=== PATIENT | male | born 1970 ===

== ENCOUNTER 2021-02-21 06:59 | Day surgery (SDC) | payer OTHER ==
[~2021-02-21] VITALS: Ht 177.8 cm; Wt 104.1 kg
[2021-02-21] MEDS ORDERED: ZESTRIL 20MG TA20 MG PO (07:09)
[2021-02-21 07:27] VITALS: BP 120/78; PULSE 77; TEMP 97.8
[2021-02-21 09:15] VITALS: BP 112/78; PULSE 70; TEMP 97.8
--- NOTE | 2021-02-21 09:15 | NUR ---
Pt returned via cart to [facility]. Ambulated to recliner, given warm blanket. present in room. VSS-see flowsheet. Given toast, pudding and juice per request. Denies needs or complaints.
[2021-02-21 09:30] VITALS: BP 136/85; PULSE 73
[2021-02-21 09:45] VITALS: BP 129/87; PULSE 56
--- NOTE | 2021-02-21 10:49 | NUR ---
Pt tolerated oral intake. Dr Landon in to review procedure reports. Discharge teaching completed with pt and , verbalized understanding. Pt taken via wheelchair to private vehicle for to drive pt.
== END 2021-02-21 10:49 | disposition home or self-care (01) ==
LOC: SDCO 06:59
DX: D12.5 Benign neoplasm of sigmoid colon (principal); K21.00 Gastro-esophageal reflux disease with esophagitis, without bleeding; K21.9 Gastro-esophageal reflux disease without esophagitis; K57.30 Diverticulosis of large intestine without perforation or abscess without bleeding; M54.50 Low back pain, unspecified; I10 Essential (primary) hypertension; G47.33 Obstructive sleep apnea (adult) (pediatric); Z79.899 Other long term (current) drug therapy; Z20.822 Contact with and (suspected) exposure to COVID-19
CPT/HCPCS: J2704; J7030; J7120